=== PATIENT | female | born 1995 | race Hispanic/Latino ===

== ENCOUNTER → 2017-10-03 | Outpatient (CLI) | payer OTHER | LOC: M LRY 09:30 | DX: Z53.9 Procedure and treatment not carried out, unspecified reason (principal) ==

== ENCOUNTER → 2017-10-10 | Outpatient (REF) | payer OTHER ==
[2017-10-10 11:30] LABS: HEMATOCRIT 42.1 % (36.0-47.0); HEMOGLOBIN 14.2 g/dl (12.0-16.0); MEAN CORPUSCULAR HEMOGLOBIN 27.3 pg (27.0-33.0); MEAN CORPUSCULAR HGB CONC 33.7 g/dl (32.0-36.5); PLATELET COUNT, AUTOMATED 266 10^3/uL (150-450); RED CELL DISTRIBUTION WIDTH 12.7 % (11.5-14.5); WHITE BLOOD COUNT 7.7 10^3/uL (4.0-10.0)
[2017-10-10 12:12] LABS: ALBUMIN 4.1 GM/DL (3.2-5.2); ALKALINE PHOSPHATASE 95 U/L (45-117); ALT/SGPT 31 U/L (12-78); ANION GAP 7 MEQ/L (8-16); AST/SGOT 23 U/L (7-37); BILIRUBIN,TOTAL 0.3 MG/DL (0.2-1.0); BLOOD UREA NITROGEN 14 MG/DL (7-18); CALCIUM LEVEL 9.5 MG/DL (8.5-10.1); CARBON DIOXIDE LEVEL 29 MEQ/L (21-32); CHLORIDE LEVEL 107 MEQ/L (98-107); CREATININE FOR GFR 0.81 MG/DL (0.55-1.30); GLOMERULAR FILTRATION RATE > 60.0 (>60); GLUCOSE, FASTING 98 MG/DL (70-100); POTASSIUM SERUM 3.9 MEQ/L (3.5-5.1); SODIUM LEVEL 143 MEQ/L (136-145); TOTAL PROTEIN 8.2 GM/DL (6.4-8.2)
[2017-10-10 12:51] LABS: ESTIMATED AVERAGE GLUCOSE 120 MG/DL (60-110); HEMOGLOBIN A1c 5.8 %
== END ==
LOC: M SFHCCLAY 11:11
DX: R51 Headache (principal); R41.9 Unspecified symptoms and signs involving cognitive functions and awareness

== ENCOUNTER 2018-07-06 18:06 | Emergency (ER) | payer OTHER ==
[~2018-07-06] VITALS: Ht 167.6 cm; Wt 90.9 kg
[~2018-07-06 18:06] MED LIST: HYDRO50TAB PO; TRAZO50TA PO
--- NOTE | 2018-07-06 19:16 | REP ---
Clinical: Pain. Technique: AP and lateral views of the right humerus. Findings: There is a spiral fracture of the mid/distal humeral shaft with mild displacement. Impression: Spiral fracture of the mid/distal humeral diaphysis. Electronically Signed by Eliot Munguia MD 07/06/2018 07:08 P
--- NOTE | 2018-07-06 19:18 | REP ---
Clinical: Trauma. Findings: There is an angulated displaced fracture of the distal humeral shaft with overlying soft tissue swelling. The elbow joint appears grossly intact. Impression: Angulated displaced fracture of the distal humeral shaft. Elbow joint grossly intact. Electronically Signed by Eliot Mnuguia MD 07/06/2018 07:09 P
[2018-07-06] MEDS ORDERED: IBUPROFEN 800 MG TAB PO ONE (21:30)
[2018-07-06] MEDS ORDERED: HYDR-3713 PO (22:39)
[2018-07-06] MEDS ORDERED: IBUP80TA PO (22:41)
[2018-07-06 22:58] VITALS: BP 112/59
--- NOTE | 2018-07-07 08:19 | REP ---
Clinical: Trauma. Technique: AP and lateral views of the right humerus. Findings: There is a mildly displaced and angulated oblique fracture of the mid/distal humeral shaft. No other fracture or dislocation appreciated. Impression: Oblique fracture of the mid/distal humeral shaft. Electronically Signed by Eliot Munguia MD 07/07/2018 08:11 A
== END 2018-07-06 22:59 | disposition home or self-care (01) ==
LOC: M ED 18:06
DX: S42.341A Displaced spiral fracture of shaft of humerus, right arm, initial encounter for closed fracture (principal); X58.XXXA Exposure to other specified factors, initial encounter; Y92.149 Unspecified place in prison as the place of occurrence of the external cause; Y93.89 Activity, other specified; Y99.9 Unspecified external cause status

== ENCOUNTER → 2019-01-10 | Outpatient (CLI) | payer OTHER ==
[~2019-01-10] MED LIST changes: +HYDR-3713 PO; +IBUP80TA PO; +TRAZ1TAB10 PO; -TRAZO50TA PO
--- NOTE | 2019-01-10 11:43 | REP ---
Clinical: Right arm pain. Technique: AP and lateral views of the right humerus. Findings: Healed/healing fracture of the distal humeral diaphysis is appreciated with surrounding periosteal reaction and callus formation. Clinical correlation is recommended to exclude new superimposed acute injury. Remainder of the humerus appears intact and normal. Impression: As above. Electronically Signed by Eliot Munguia MD 01/10/2019 11:34 A
== END ==
LOC: M SMT 11:06
PROVIDERS: ATTEND Physician Assistant Medical
DX: S42.301A Unspecified fracture of shaft of humerus, right arm, initial encounter for closed fracture (principal); Y92.9 Unspecified place or not applicable; Y93.9 Activity, unspecified

== ENCOUNTER → 2019-02-05 | Outpatient (CLI) | payer OTHER ==
[2019-02-05 20:51] LABS: ALBUMIN 4.4 GM/DL (3.2-5.2); ALT/SGPT 38 U/L (12-78); BILIRUBIN,TOTAL 0.2 MG/DL (0.2-1.0); BLOOD UREA NITROGEN 11 MG/DL (7-18); CALCIUM LEVEL 10.2 MG/DL (8.5-10.1); CARBON DIOXIDE LEVEL 27 MEQ/L (21-32); CHLORIDE LEVEL 103 MEQ/L (98-107); CREATININE FOR GFR 0.82 MG/DL (0.55-1.30); GLOMERULAR FILTRATION RATE > 60.0 (>60); GLUCOSE, FASTING 66 MG/DL (70-100); POTASSIUM SERUM 4.3 MEQ/L (3.5-5.1); SODIUM LEVEL 137 MEQ/L (136-145); TOTAL 25(OH) VITAMIN D 22.2 NG/ML (30.0-100.0); TOTAL PROTEIN 8.6 GM/DL (6.4-8.2)
[2019-02-05 20:52] LABS: BASO # 0.1 10^3/uL (0.0-0.2); BASO % 0.4 % (0.0-1.0); EOS # 0.1 10^3/uL (0.0-0.50); EOS % 0.6 % (0.0-3.0); HEMATOCRIT 41.4 % (36.0-47.0); HEMOGLOBIN 13.7 g/dl (12.0-15.5); LYMPH # 2.6 10^3/uL (1.5-6.5); LYMPH % 18.7 % (24.0-44.0); MEAN CORPUSCULAR HGB CONC 33.1 g/dl (32.0-36.5); MEAN CORPUSCULAR VOLUME 84.5 fl (80.0-96.0); MONO # 1.3 10^3/uL (0.0-0.8); MONO % 9.1 % (0.0-5.0); NEUTROPHILS # 9.9 10^3/uL (1.8-7.7); NEUTROPHILS % 70.6 % (36.0-66.0); PLATELET COUNT, AUTOMATED 307 10^3/uL (150-450)
== END ==
LOC: M WUC 16:05
PROVIDERS: ATTEND Physician Assistant Medical
DX: F41.1 Generalized anxiety disorder (principal); E55.9 Vitamin D deficiency, unspecified; M79.601 Pain in right arm

== ENCOUNTER → 2019-07-07 | Outpatient (CLI) | payer OTHER ==
[~2019-07-07] MED LIST changes: +HYDR1TAB33 PO; -HYDRO50TAB PO
[2019-07-07 13:10] LABS: HEMATOCRIT 41.2 % (36.0-47.0); HEMOGLOBIN 13.8 g/dl (12.0-15.5); MEAN CORPUSCULAR HEMOGLOBIN 27.4 pg (27.0-33.0); MEAN CORPUSCULAR HGB CONC 33.5 g/dl (32.0-36.5); MEAN CORPUSCULAR VOLUME 81.9 fl (80.0-96.0); PLATELET COUNT, AUTOMATED 273 10^3/uL (150-450); RED BLOOD COUNT 5.03 10^6/uL (4.00-5.40); WHITE BLOOD COUNT 8.2 10^3/uL (4.0-10.0)
[2019-07-07 13:36] LABS: ALT/SGPT 38 U/L (12-78); BILIRUBIN,TOTAL 0.2 MG/DL (0.2-1.0); BLOOD UREA NITROGEN 17 MG/DL (7-18); CALCIUM LEVEL 9.1 MG/DL (8.5-10.1); CARBON DIOXIDE LEVEL 27 MEQ/L (21-32); CHLORIDE LEVEL 109 MEQ/L (98-107); CREATININE FOR GFR 0.92 MG/DL (0.55-1.30); GLOMERULAR FILTRATION RATE > 60.0 (>60); GLUCOSE, FASTING 103 MG/DL (70-100); POTASSIUM SERUM 4.1 MEQ/L (3.5-5.1); SODIUM LEVEL 142 MEQ/L (136-145); TOTAL PROTEIN 7.9 GM/DL (6.4-8.2)
[2019-07-07 13:44] LABS: FREE T4 0.85 NG/DL (0.76-1.46); THYROID STIMULATING HORMONE 2.18 uIU/ML (0.358-3.740); TOTAL 25(OH) VITAMIN D 20.6 NG/ML (30.0-100.0)
== END ==
LOC: M PLALAB 10:59
PROVIDERS: ATTEND Physician Assistant
DX: R73.09 Other abnormal glucose (principal); F41.9 Anxiety disorder, unspecified; R53.83 Other fatigue

== ENCOUNTER → 2020-09-24 | Outpatient (CLI) | payer MEDICAID ==
[~2020-09-24] MED LIST changes: +OSEL75CA PO; +PRENTAB9 PO
== END ==
LOC: M OUTALCOH 08:22
PROVIDERS: ATTEND Psychiatry & Neurology Psychiatry
DX: Z13.9 Encounter for screening, unspecified (principal)

== ENCOUNTER → 2022-01-17 | Outpatient (CLI) | payer OTHER ==
[~2022-01-17] MED LIST changes: +FLAG500T PO
== END ==
LOC: M PLALAB 10:48
PROVIDERS: ATTEND Obstetrics & Gynecology
DX: Z36.9 Encounter for antenatal screening, unspecified (principal); Z3A.12 12 weeks gestation of pregnancy

== ENCOUNTER 2022-02-24 22:32 | Emergency (ER) | payer MEDICAID, OTHER ==
[~2022-02-24] VITALS: Ht 175.3 cm; Wt 109.2 kg
[2022-02-24 22:33] VITALS: BP 125/82
== END 2022-02-25 00:04 | disposition left against medical advice (07) ==
LOC: M ED 22:32
DX: Z53.21 Procedure and treatment not carried out due to patient leaving prior to being seen by health care provider (principal)

== ENCOUNTER 2022-03-07 03:16 | Emergency (ER) | payer MEDICAID, OTHER ==
[~2022-03-07] VITALS: Ht 175.3 cm; Wt 118.2 kg
[2022-03-07 04:39] LABS: RSV AMPLIFICATION NEGATIVE (NEGATIVE)
[2022-03-07] MEDS ORDERED: ACETAMINOPHEN 500 MG TAB PO ONE (05:40)
[2022-03-07] MEDS ORDERED: ALBUTEROL 90 MCG/ACT 8GM HFA INHALER INH ONE (05:40)
[2022-03-07] MEDS ORDERED: BENZONATATE 100MG CAPSULE PO ONE (05:40)
[2022-03-07] MEDS ORDERED: BENZ200C70 PO (05:42)
[2022-03-07 06:00] VITALS: BP 176/107
== END 2022-03-07 06:25 | disposition home or self-care (01) ==
LOC: M ED 03:16
DX: S29.011A Strain of muscle and tendon of front wall of thorax, initial encounter (principal); R05.9 Cough, unspecified; J45.909 Unspecified asthma, uncomplicated; F17.200 Nicotine dependence, unspecified, uncomplicated; Y93.9 Activity, unspecified; Y92.9 Unspecified place or not applicable

== ENCOUNTER → 2022-03-08 | Outpatient (CLI) | payer OTHER ==
[~2022-03-08] MED LIST changes: +BENZ200C70 PO
== END ==
LOC: M WHC 14:01
PROVIDERS: ATTEND Specialist
DX: Z34.02 Encounter for supervision of normal first pregnancy, second trimester (principal); Z3A.21 21 weeks gestation of pregnancy

== ENCOUNTER → 2022-04-12 | Outpatient (CLI) | payer OTHER | LOC: M WHC 08:37 | PROVIDERS: ATTEND Advanced Practice Midwife | DX: O99.342 Other mental disorders complicating pregnancy, second trimester (principal); Z3A.26 26 weeks gestation of pregnancy ==

== ENCOUNTER 2022-04-22 22:11 | Inpatient (IN) | payer MEDICAID, OTHER ==
[2022-04-22 22:49] LABS: HEMATOCRIT 34.5 % (36.0-47.0); HEMOGLOBIN 11.4 g/dl (12.0-15.5); MEAN CORPUSCULAR HEMOGLOBIN 27.7 pg (27.0-33.0); MEAN CORPUSCULAR VOLUME 83.9 fl (80.0-96.0); PLATELET COUNT, AUTOMATED 234 10^3/uL (150-450); RED BLOOD COUNT 4.11 10^6/uL (4.00-5.40)
[2022-04-22 23:32] LABS: RSV AMPLIFICATION NEGATIVE (NEGATIVE)
[2022-04-22 23:52] LABS: HCG, SERUM QUALITATIVE POSITIVE (NEGATIVE)
[2022-04-22 23:53] LABS: ACETAMINOPHEN LEVEL < 2.0 UG/ML (10.0-30.0); ALBUMIN 3.1 GM/DL (3.2-5.2); ALT/SGPT 37 U/L (12-78); BILIRUBIN,DIRECT < 0.1 MG/DL (0.0-0.2); BLOOD UREA NITROGEN 7 MG/DL (7-18); CALCIUM LEVEL 9.3 MG/DL (8.5-10.1); CARBON DIOXIDE LEVEL 27 MEQ/L (21-32); CHLORIDE LEVEL 107 MEQ/L (98-107); ETHYL ALCOHOL (ETHANOL) 0.003 % (0.000-0.010); GLOMERULAR FILTRATION RATE > 60.0 (>60); GLUCOSE, FASTING 86 MG/DL (70-100); POTASSIUM SERUM 3.9 MEQ/L (3.5-5.1); SALICYLATE LEVEL < 1.7 MG/DL (5.0-30.0); SODIUM LEVEL 139 MEQ/L (136-145); TOTAL PROTEIN 6.7 GM/DL (6.4-8.2)
[2022-04-23 00:37] LABS: AMPHETAMINES LEVEL URINE NEGATIVE (NEGATIVE); BARBITURATES URINE NEGATIVE (NEGATIVE); BENZODIAZEPINES URINE NEGATIVE (NEGATIVE); CANNABINOIDS URINE NEGATIVE (NEGATIVE); COCAINE METABOLITE URINE NEGATIVE (NEGATIVE); METHADONE URINE NEGATIVE (NEGATIVE); OPIATES URINE NEGATIVE (NEGATIVE); PHENCYCLIDINE URINE NEGATIVE (NEGATIVE)
[2022-04-23 01:44] LABS: BILIRUBIN,TOTAL < 0.1 MG/DL (0.2-1.0)
[2022-04-23] MEDS ORDERED: med rec comment (06:18)
[2022-04-23] MEDS ORDERED: HOME MED LIST COMPLETE! XX SCH (06:20)
[2022-04-24] MEDS ORDERED: MOM 30ML SUSPENSION UDC PO PRN (13:55)
[2022-04-24] MEDS ORDERED: MAALOX 30 ML SUSP *UDC PO PRN (13:55)
[2022-04-24] MEDS ORDERED: MIRALAX *UNIT DOSE* 17GM PACKET PO ONE (14:00)
[2022-04-24 23:21] VITALS: BP 139/65
[2022-04-25] MEDS: PRENATAL VITAMINS CHEWABLE TABLET PO SCH (10:21)
[2022-04-25 16:01] VITALS: BP 138/64
[2022-04-26 06:24] VITALS: BP 142/64
[2022-04-26] MEDS: PRENATAL VITAMINS CHEWABLE TABLET PO SCH (07:30)
[2022-04-26 16:21] VITALS: BP 136/66
[2022-04-26] MEDS ORDERED: PRENCHW PO (16:49)
[2022-04-26] MEDS ORDERED: diphenhydrAMINE 50MG CAP PO PRN (22:40)
[2022-04-27 06:30] VITALS: BP 137/90
[2022-04-27] MEDS: PRENATAL VITAMINS CHEWABLE TABLET PO SCH (08:43)
== END 2022-04-27 10:22 | disposition home or self-care (01) | DRG 755 ==
LOC: M ED 22:11 → M ED INP 04-24 13:54 → M PSY 04-24 22:13
PROVIDERS: ADMIT Student in an Organized Health Care Education/Training Program; ATTEND Psychiatry & Neurology Psychiatry
DX: F43.23 Adjustment disorder with mixed anxiety and depressed mood (principal); R45.851 Suicidal ideations; O09.32 Supervision of pregnancy with insufficient antenatal care, second trimester; O09.33 Supervision of pregnancy with insufficient antenatal care, third trimester; F43.10 Post-traumatic stress disorder, unspecified; F17.210 Nicotine dependence, cigarettes, uncomplicated; Z3A.28 28 weeks gestation of pregnancy

== ENCOUNTER → 2022-05-23 | Outpatient (CLI) | payer OTHER ==
[~2022-05-23] MED LIST changes: -FLAG500T PO; +PRENCHW PO; +med rec comment
[2022-05-23 13:36] LABS: HEMATOCRIT 37.6 % (36.0-47.0); MEAN CORPUSCULAR HEMOGLOBIN 27.5 pg (27.0-33.0); MEAN CORPUSCULAR HGB CONC 31.9 g/dl (32.0-36.5); MEAN CORPUSCULAR VOLUME 86.2 fl (80.0-96.0); PLATELET COUNT, AUTOMATED 215 10^3/uL (150-450); RED BLOOD COUNT 4.36 10^6/uL (4.00-5.40); WHITE BLOOD COUNT 12.1 10^3/uL (4.0-10.0)
[2022-05-23 14:23] LABS: GLUCOSE CHALLENGE TEST 1 HOUR 142 MG/DL (LESS THAN 140)
[2022-05-23 15:11] LABS: GC DNA AMPLIFICATION NEGATIVE (NEGATIVE)
[2022-05-23 15:46] LABS: HEPATITIS C VIRUS ABY INDEX 0.2 INDEX (<0.8)
[2022-05-23 15:47] LABS: HIV 1&2 SCREEN CENTAUR NEGATIVE (NEGATIVE)
== END ==
LOC: M PLALAB 10:26
PROVIDERS: ATTEND Advanced Practice Midwife
DX: O99.342 Other mental disorders complicating pregnancy, second trimester (principal); Z3A.00 Weeks of gestation of pregnancy not specified

== ENCOUNTER → 2022-05-31 | Outpatient (CLI) | payer OTHER | LOC: M WHC 12:56 | PROVIDERS: ATTEND Advanced Practice Midwife | DX: Z34.83 Encounter for supervision of other normal pregnancy, third trimester (principal); Z3A.31 31 weeks gestation of pregnancy ==

== ENCOUNTER → 2022-07-04 | Outpatient (REF) | payer OTHER | LOC: M SFHCWAGY 10:15 | PROVIDERS: ATTEND Specialist | DX: Z34.83 Encounter for supervision of other normal pregnancy, third trimester (principal) ==

== ENCOUNTER 2022-07-29 07:47 | Inpatient (IN) | payer OTHER ==
[2022-07-29] VITALS (17 sets, daily range): BP systolic 133–176; BP diastolic 73–101
[~2022-07-29] VITALS: Ht 175.3 cm; Wt 115.7 kg
[2022-07-29] MEDS ORDERED: OXYTOCIN INJ 10UNITS/ML 1ML VIAL IM PRN (07:55)
[2022-07-29] MEDS ORDERED: LIDOCAINE 1% MDV 20ML VIAL INFIL PRN (07:55)
[2022-07-29] MEDS ORDERED: OXYTOCIN DRIP 30 UNITS in IV 1 EA IV PRN ×6 (07:55)
[2022-07-29] MEDS ORDERED: OXYTOCIN INJ 10UNITS/ML 1ML VIAL IV PRN (07:55)
[2022-07-29] MEDS ORDERED: CARBOPROST TROMETHAMINE 250 MCG/ML AMP IM PRN (07:55)
[2022-07-29] MEDS ORDERED: TRANEXAMIC ACID INJection 1,000 MG in NS 100 ML IV PRN (07:55)
[2022-07-29] MEDS ORDERED: METHYLERGONOVINE MALEATE 0.2 MG/ML VIAL (J2210) IM PRN (07:55)
[2022-07-29] MEDS ORDERED: ACET325C5 PO (08:18)
[2022-07-29] MEDS ORDERED: PRENTAB9 PO (08:18)
[2022-07-29] MEDS ORDERED: HOME MED LIST COMPLETE! XX SCH (08:20)
[2022-07-29 09:27] LABS: HEMATOCRIT 38.9 % (36.0-47.0); HEMOGLOBIN 13.1 g/dl (12.0-15.5); MEAN CORPUSCULAR HEMOGLOBIN 28.4 pg (27.0-33.0); MEAN CORPUSCULAR HGB CONC 33.7 g/dl (32.0-36.5); MEAN CORPUSCULAR VOLUME 84.2 fl (80.0-96.0); PLATELET COUNT, AUTOMATED 201 10^3/uL (150-450); RED BLOOD COUNT 4.62 10^6/uL (4.00-5.40); WHITE BLOOD COUNT 10.9 10^3/uL (4.0-10.0)
[2022-07-29] MEDS ORDERED: LACTATED RINGER'S 1000 ML IV STA (09:52)
[2022-07-29 10:15] LABS: LDH LACTATE DEHYDROGENASE 382 U/L (120-246)
[2022-07-29] MEDS ORDERED: miSOPROStol 50MCG 1/2 TABLET PO ONE (10:50)
[2022-07-29 11:03] LABS: ALT/SGPT 21 U/L (7.0-40); AST/SGOT 47 U/L (<34); BILIRUBIN,TOTAL 0.2 MG/DL (0.3-1.2); CREATININE FOR GFR 0.56 MG/DL (0.55-1.30); GLOMERULAR FILTRATION RATE > 60.0 (>60)
[2022-07-29] MEDS: LR 1,000 ML IV SCH ×2 (11:24→18:59)
[2022-07-29 12:30] LABS: AMPHETAMINES URINE REFLEX NEGATIVE (NEGATIVE); BARBITURATES URINE REFLEX NEGATIVE (NEGATIVE); BENZODIAZEPINES URINE REFLEX NEGATIVE (NEGATIVE); CANNABINOIDS URINE REFLEX NEGATIVE (NEGATIVE); COCAINE METABOLITE URINE REFLE NEGATIVE (NEGATIVE); METHADONE URINE REFLEX NEGATIVE (NEGATIVE); OPIATES URINE REFLEX NEGATIVE (NEGATIVE); PHENCYCLIDINE URINE REFLEX NEGATIVE (NEGATIVE)
[2022-07-29] MEDS ORDERED: OXYTOCIN DRIP 30 UNITS in IV 1 EA IV SCH ×2 (13:20→22:30)
[2022-07-29] MEDS ORDERED: BICITRA 30ML SOLN UDC PO ONE (18:40)
[2022-07-29] MEDS ORDERED: ceFAZolin SOD 2 GM in IV 1 EA IV ONE (18:40)
[2022-07-29] MEDS ORDERED: MORPHINE PRES-FREE INJ 10 MG/10 ML VIAL As Ordered ONE (20:09)
[2022-07-29] MEDS ORDERED: OXYTOCIN 30UNITS IN 0.9% NaCl 500ML IV BAG As Ordered ONE (20:35)
[2022-07-29] MEDS ORDERED: ONDANSETRON 4MG 2ML VIAL As Ordered ONE (20:54)
[2022-07-29 20:59] LABS: CORD GAS ABE V -0.2; CORD GAS HCO3 V 27.2 MEQ/L; CORD GAS O2 SAT V 50.4 %; CORD GAS PCO2 V 54.2 mmHg; CORD GAS PH V 7.318 UNITS; CORD GAS TCO2 V 28.8 MEQ/L
[2022-07-29 21:02] LABS: CORD GAS ABE A -1.3; CORD GAS HCO3 A 28.1 MEQ/L; CORD GAS O2 SAT A 15.1 %; CORD GAS PH A 7.24 UNITS; CORD GAS PO2 A 11.2 mmHg; CORD GAS SBC A 21.2 MEQ/L; CORD GAS TCO2 A 30.1 MEQ/L
[2022-07-29] MEDS ORDERED: ePHEDrine SULFATE 25 MG/5 ML(5MG/ML) SYRINGE As Ordered ONE (21:06)
[2022-07-29] MEDS ORDERED: PHENYLephrine 500MCG 5ML (100MCG/ML) SYRINGE As Ordered ONE (21:06)
[2022-07-29] MEDS ORDERED: KETOROLAC 60MG 2ML VIAL As Ordered ONE (21:15)
[2022-07-29] MEDS ORDERED: RHOGAM 300MCG (1500IU) INJ IM SCH (22:30)
[2022-07-29] MEDS ORDERED: SIMETHICONE 80MG CHEW TAB PO PRN (22:30)
[2022-07-29] MEDS ORDERED: METOCLOPRAMIDE INJ 10MG/2ML VIAL IV PRN (22:30)
[2022-07-29] MEDS ORDERED: DOCUSATE SODIUM 100MG CAPSULE PO PRN (22:30)
[2022-07-29] MEDS ORDERED: oxyCODONE 5MG TAB PO PRN (22:30)
[2022-07-29] MEDS ORDERED: ONDANSETRON 4MG 2ML VIAL IV PRN (22:30)
[2022-07-29] MEDS: ACETAMINOPHEN 500 MG TAB PO SCH (23:56)
[2022-07-30] VITALS (9 sets, daily range): BP systolic 131–153; BP diastolic 65–91
[2022-07-30] MEDS: KETOROLAC 30 MG/ML 1ML VIAL IV SCH ×3 (03:00→15:08)
[2022-07-30] MEDS: ACETAMINOPHEN 500 MG TAB PO SCH ×4 (06:19→23:39)
[2022-07-30] MEDS: PRENATAL VITAMINS CHEWABLE TABLET PO SCH (08:00)
[2022-07-30 08:07] LABS: HEMOGLOBIN 11.6 g/dl (12.0-15.5); MEAN CORPUSCULAR HEMOGLOBIN 28.6 pg (27.0-33.0); MEAN CORPUSCULAR HGB CONC 33.1 g/dl (32.0-36.5); MEAN CORPUSCULAR VOLUME 86.4 fl (80.0-96.0); PLATELET COUNT, AUTOMATED 167 10^3/uL (150-450); RED BLOOD COUNT 4.05 10^6/uL (4.00-5.40); WHITE BLOOD COUNT 14.3 10^3/uL (4.0-10.0)
[2022-07-30] MEDS ORDERED: FLUCONAZOLE 100 MG TAB PO ONE (13:00)
[2022-07-30] MEDS ORDERED: traZODone 100 MG TAB PO PRN (20:15)
[2022-07-30] MEDS: ARIPiprazole 10 MG TAB PO SCH (21:00)
[2022-07-30] MEDS: IBUPROFEN 600MG TAB PO SCH (23:39)
[2022-07-31 02:34] VITALS: BP 142/83
[2022-07-31] MEDS: ACETAMINOPHEN 500 MG TAB PO SCH ×3 (05:23→18:00)
[2022-07-31] MEDS: IBUPROFEN 600MG TAB PO SCH ×4 (05:24→20:22)
[2022-07-31 06:02] VITALS: BP 138/70
[2022-07-31] MEDS: PRENATAL VITAMINS CHEWABLE TABLET PO SCH (08:06)
[2022-07-31] MEDS ORDERED: MEASLES,MUMPS,RUBELLA VACCINE INJ (MMR-II) SC.IMMUN ONE (09:00)
[2022-07-31 10:05] VITALS: BP 149/80
[2022-07-31 14:15] VITALS: BP 169/80
[2022-07-31] MEDS: oxyCODONE 5MG TAB PO PRN (14:28)
[2022-07-31 14:30] VITALS: BP 146/83
[2022-07-31 18:00] VITALS: BP 145/71
[2022-07-31] MEDS: ARIPiprazole 10 MG TAB PO SCH (20:22)
[2022-08-01] MEDS: oxyCODONE 5MG TAB PO PRN (05:10)
[2022-08-01] MEDS: IBUPROFEN 600MG TAB PO SCH ×2 (05:11→11:36)
[2022-08-01 05:56] VITALS: BP_SYST 113; BP_SYST 146; BP_DIAS 59; BP_DIAS 86
[2022-08-01] MEDS: ACETAMINOPHEN 500 MG TAB PO SCH ×3 (06:00→12:00)
[2022-08-01 07:13] LABS: HEMOGLOBIN 10.4 g/dl (12.0-15.5); MEAN CORPUSCULAR HEMOGLOBIN 28.3 pg (27.0-33.0); MEAN CORPUSCULAR HGB CONC 32.5 g/dl (32.0-36.5); MEAN CORPUSCULAR VOLUME 87.2 fl (80.0-96.0); PLATELET COUNT, AUTOMATED 183 10^3/uL (150-450); RED BLOOD COUNT 3.67 10^6/uL (4.00-5.40); WHITE BLOOD COUNT 9.4 10^3/uL (4.0-10.0)
[2022-08-01 07:54] LABS: LDH LACTATE DEHYDROGENASE 250 U/L (120-246)
[2022-08-01 07:55] LABS: ALT/SGPT 25 U/L (7.0-40); AST/SGOT 33 U/L (<34); BILIRUBIN,TOTAL 0.2 MG/DL (0.3-1.2); CREATININE FOR GFR 0.63 MG/DL (0.55-1.30); GLOMERULAR FILTRATION RATE > 60.0 (>60)
[2022-08-01] MEDS: PRENATAL VITAMINS CHEWABLE TABLET PO SCH (08:12)
[2022-08-01] MEDS ORDERED: COLA100C5 PO (13:33)
[2022-08-01] MEDS ORDERED: IBUP-1022 PO (13:33)
[2022-08-01] MEDS ORDERED: OXYC-517 PO (13:33)
[2022-08-01] MEDS ORDERED: ABIL10TA9 PO (19:52)
== END 2022-08-01 16:55 | disposition home or self-care (01) | DRG 540 ==
LOC: MERGE 07:47 → M LDI 07:47 → M OBS 23:40
PROVIDERS: ADMIT Obstetrics & Gynecology; ATTEND Obstetrics & Gynecology
PROC: 3E033VJ Introduction of Other Hormone into Peripheral Vein, Percutaneous Approach (ICD-10-PCS; 2022-07-29)
PROC: 10D00Z1 Extraction of Products of Conception, Low, Open Approach (ICD-10-PCS; principal; 2022-07-29 20:07)
DX: O13.4 Gestational [pregnancy-induced] hypertension without significant proteinuria, complicating childbirth (principal); F20.9 Schizophrenia, unspecified; O98.52 Other viral diseases complicating childbirth; Z37.0 Single live birth; Z3A.40 40 weeks gestation of pregnancy; O48.0 Post-term pregnancy; O99.344 Other mental disorders complicating childbirth; O99.284 Endocrine, nutritional and metabolic diseases complicating childbirth; B00.9 Herpesviral infection, unspecified; O76 Abnormality in fetal heart rate and rhythm complicating labor and delivery

== ENCOUNTER 2022-08-26 02:09 | Inpatient (IN) | payer MEDICAID, OTHER ==
[~2022-08-26] VITALS: Ht 175.3 cm; Wt 102.1 kg
[~2022-08-26 02:09] MED LIST changes: +ABIL10TA9 PO; +ACET325C5 PO; +COLA100C5 PO; +IBUP-1022 PO; +OXYC-517 PO
[2022-08-26] MEDS ORDERED: TRAZ-257 PO (03:02)
[2022-08-26] MEDS ORDERED: ARIP10TA32 PO (03:02)
[2022-08-26] MEDS ORDERED: HOME MED LIST COMPLETE! XX SCH (03:05)
[2022-08-26 03:45] LABS: HEMATOCRIT 37.3 % (36.0-47.0); MEAN CORPUSCULAR HEMOGLOBIN 27.8 pg (27.0-33.0); MEAN CORPUSCULAR HGB CONC 32.2 g/dl (32.0-36.5); MEAN CORPUSCULAR VOLUME 86.5 fl (80.0-96.0); PLATELET COUNT, AUTOMATED 261 10^3/uL (150-450); RED BLOOD COUNT 4.31 10^6/uL (4.00-5.40); WHITE BLOOD COUNT 9.4 10^3/uL (4.0-10.0)
[2022-08-26 03:51] LABS: AMPHETAMINES LEVEL URINE NEGATIVE (NEGATIVE); BARBITURATES URINE NEGATIVE (NEGATIVE); BENZODIAZEPINES URINE NEGATIVE (NEGATIVE); CANNABINOIDS URINE NEGATIVE (NEGATIVE); COCAINE METABOLITE URINE NEGATIVE (NEGATIVE); METHADONE URINE NEGATIVE (NEGATIVE); OPIATES URINE NEGATIVE (NEGATIVE); PHENCYCLIDINE URINE NEGATIVE (NEGATIVE)
[2022-08-26 04:06] LABS: ETHYL ALCOHOL (ETHANOL) < 0.003 % (0.000-0.010)
[2022-08-26 04:07] LABS: ACETAMINOPHEN LEVEL < 2.0 UG/ML (10.0-20.0)
[2022-08-26 04:08] LABS: ALKALINE PHOSPHATASE 189 U/L (46-116); ALT/SGPT 36 U/L (7.0-40); AST/SGOT 23 U/L (<34); BILIRUBIN,DIRECT < 0.1 MG/DL (<0.4); BILIRUBIN,TOTAL 0.3 MG/DL (0.3-1.2); BLOOD UREA NITROGEN 14 MG/DL (9-23); CALCIUM LEVEL 9.4 MG/DL (8.5-10.1); CARBON DIOXIDE LEVEL 28 MMOL/L (20-31); CHLORIDE LEVEL 108 MMOL/L (98-107); CREATININE FOR GFR 0.87 MG/DL (0.55-1.30); GLOMERULAR FILTRATION RATE > 60.0 (>60); GLUCOSE, FASTING 95 MG/DL (60-100); POTASSIUM SERUM 4.3 MMOL/L (3.5-5.1); SALICYLATE LEVEL < 3.0 MG/DL (<30); SODIUM LEVEL 139 MMOL/L (136-145); TOTAL PROTEIN 7.2 G/DL (5.7-8.2)
[2022-08-26 04:10] LABS: THYROID STIMULATING HORMONE 2.778 uIU/ML (0.55-4.78)
[2022-08-26 04:47] LABS: HCG, SERUM QUALITATIVE NEGATIVE (NEGATIVE)
[2022-08-26] MEDS ORDERED: ARIPiprazole 10 MG TAB PO SCH (09:00)
[2022-08-26] MEDS ORDERED: traZODone 100 MG TAB PO PRN (13:45)
[2022-08-26] MEDS ORDERED: MAALOX 30 ML SUSP *UDC PO PRN (18:05)
[2022-08-26] MEDS ORDERED: MOM 30ML SUSPENSION UDC PO PRN (18:05)
[2022-08-26] MEDS: LORazepam 1 MG TAB PO PRN (21:14)
[2022-08-26 22:00] VITALS: BP 148/84
[2022-08-27 06:11] VITALS: BP 127/61
[2022-08-27] MEDS: OLANZapine ORAL DISINTEGRATING TAB 5MG PO PRN ×2 (06:29→13:29)
[2022-08-27] MEDS: ARIPiprazole 10 MG TAB PO SCH (08:19)
[2022-08-27] MEDS: LORazepam 1 MG TAB PO PRN ×2 (08:20→13:31)
[2022-08-27] MEDS: NICOTINE 14 MG/24 HR TRANSDERMAL TD SCH (09:00)
[2022-08-27] MEDS: risperiDONE 2 MG TAB PO SCH ×2 (11:51→20:01)
[2022-08-27] MEDS: ACETAMINOPHEN TAB 650MG DOSE (2X325MG) PO PRN (13:30)
[2022-08-27] MEDS: VANICREAM MOISTURIZING SKIN CREAM 113GM TUBE TOP SCH ×2 (14:42→20:01)
[2022-08-27 16:18] VITALS: BP 141/82
[2022-08-27] MEDS: IBUPROFEN 800 MG TAB PO PRN (17:51)
[2022-08-27] MEDS: traZODone 100 MG TAB PO PRN (20:01)
[2022-08-28 06:26] VITALS: BP 122/65
[2022-08-28] MEDS: VANICREAM MOISTURIZING SKIN CREAM 113GM TUBE TOP SCH ×2 (08:18→20:01)
[2022-08-28] MEDS: ARIPiprazole 10 MG TAB PO SCH (08:18)
[2022-08-28] MEDS: risperiDONE 2 MG TAB PO SCH ×2 (08:18→20:01)
[2022-08-28] MEDS: NICOTINE 14 MG/24 HR TRANSDERMAL TD SCH ×2 (08:20→09:02)
[2022-08-28] MEDS: OLANZapine ORAL DISINTEGRATING TAB 5MG PO PRN (09:53)
[2022-08-28] MEDS: LORazepam 1 MG TAB PO PRN ×2 (13:42→20:01)
[2022-08-28] MEDS: IBUPROFEN 800 MG TAB PO PRN (15:10)
[2022-08-28] MEDS: traZODone 100 MG TAB PO PRN (20:01)
[2022-08-29 06:45] VITALS: BP 149/77
[2022-08-29] MEDS: NICOTINE 14 MG/24 HR TRANSDERMAL TD SCH (08:55)
[2022-08-29] MEDS: VANICREAM MOISTURIZING SKIN CREAM 113GM TUBE TOP SCH ×2 (08:56→20:04)
[2022-08-29] MEDS: risperiDONE 2 MG TAB PO SCH ×2 (08:56→20:04)
[2022-08-29] MEDS: ARIPiprazole 10 MG TAB PO SCH (08:56)
[2022-08-29] MEDS ORDERED: risperiDONE LONG-ACTING 25MG 2ML INJ IM SCH (09:00)
[2022-08-29] MEDS: LORazepam 1 MG TAB PO PRN (17:10)
[2022-08-29 17:17] VITALS: BP 138/70
[2022-08-29] MEDS: traZODone 100 MG TAB PO PRN (20:04)
[2022-08-30 06:53] VITALS: BP 135/77
[2022-08-30] MEDS: NICOTINE 14 MG/24 HR TRANSDERMAL TD SCH (08:07)
[2022-08-30] MEDS: risperiDONE 2 MG TAB PO SCH ×2 (08:07→20:59)
[2022-08-30] MEDS: ARIPiprazole 10 MG TAB PO SCH (08:07)
[2022-08-30] MEDS: VANICREAM MOISTURIZING SKIN CREAM 113GM TUBE TOP SCH ×2 (08:08→20:59)
[2022-08-30] MEDS: ACETAMINOPHEN TAB 650MG DOSE (2X325MG) PO PRN (09:00)
[2022-08-30] MEDS: IBUPROFEN 800 MG TAB PO PRN (10:51)
[2022-08-30] MEDS: LORazepam 1 MG TAB PO PRN (16:12)
[2022-08-30 16:13] VITALS: BP 140/80
[2022-08-30] MEDS: OLANZapine ORAL DISINTEGRATING TAB 5MG PO PRN (19:22)
[2022-08-31 07:06] VITALS: BP 134/86
[2022-08-31] MEDS: risperiDONE 2 MG TAB PO SCH ×2 (08:49→21:00)
[2022-08-31] MEDS: ARIPiprazole 10 MG TAB PO SCH (08:49)
[2022-08-31] MEDS: VANICREAM MOISTURIZING SKIN CREAM 113GM TUBE TOP SCH ×2 (08:50→21:01)
[2022-08-31] MEDS: NICOTINE 14 MG/24 HR TRANSDERMAL TD SCH (09:00)
[2022-08-31] MEDS ORDERED: LORazepam 1 MG TAB PO PRN (09:50)
[2022-08-31] MEDS: IBUPROFEN 800 MG TAB PO PRN (11:41)
[2022-08-31] MEDS: SERTRALINE HCL 25 MG TABLET PO SCH (12:59)
[2022-08-31] MEDS: OLANZapine ORAL DISINTEGRATING TAB 5MG PO PRN (15:07)
[2022-08-31] MEDS: ACETAMINOPHEN TAB 650MG DOSE (2X325MG) PO PRN (15:08)
[2022-08-31 18:46] VITALS: BP 141/69
[2022-08-31] MEDS: traZODone 100 MG TAB PO PRN (21:05)
[2022-09-01] MEDS: SERTRALINE HCL 25 MG TABLET PO SCH (08:40)
[2022-09-01] MEDS: ARIPiprazole 10 MG TAB PO SCH (08:40)
[2022-09-01] MEDS: risperiDONE 2 MG TAB PO SCH (08:40)
[2022-09-01] MEDS: NICOTINE 14 MG/24 HR TRANSDERMAL TD SCH (08:41)
[2022-09-01] MEDS: VANICREAM MOISTURIZING SKIN CREAM 113GM TUBE TOP SCH (08:42)
[2022-09-01] MEDS ORDERED: RISP-9 PO (11:35)
[2022-09-01] MEDS ORDERED: SERT25TA21 PO (11:35)
[2022-09-01] MEDS ORDERED: NICO14PA TD (11:35)
[2022-09-01] MEDS ORDERED: RISP25INJ IM (11:35)
[2022-09-01] MEDS ORDERED: OLAN5ZYD PO (11:35)
[2022-09-01] MEDS ORDERED: ARIP10TA32 PO (11:35)
[2022-09-01] MEDS ORDERED: TRAZ-257 PO (11:35)
== END 2022-09-01 13:09 | disposition home or self-care (01) | DRG 750 ==
LOC: M ED 02:09 → M ED INP 18:05 → M PSY 21:58
PROVIDERS: ADMIT Student in an Organized Health Care Education/Training Program; ATTEND Student in an Organized Health Care Education/Training Program
DX: F25.0 Schizoaffective disorder, bipolar type (principal); F17.200 Nicotine dependence, unspecified, uncomplicated

== ENCOUNTER → 2022-11-09 | Outpatient (CLI) | payer OTHER ==
[~2022-11-09] MED LIST changes: +ARIP10TA32 PO; +NICO14PA TD; +OLAN5ZYD PO; +RISP-9 PO; +RISP25INJ IM; +SERT25TA21 PO; +TRAZ-257 PO
[2022-11-09 15:56] LABS: FREE T4 1.07 NG/DL (0.89-1.76)
[2022-11-09 15:57] LABS: THYROID STIMULATING HORMONE 2.672 uIU/ML (0.55-4.78)
[2022-11-09 16:04] LABS: HEMOGLOBIN A1c 5.8 % (4.0-6.0)
== END ==
LOC: M PLALAB 12:59
PROVIDERS: ATTEND Physician Assistant Medical
DX: R73.01 Impaired fasting glucose (principal); E03.9 Hypothyroidism, unspecified

== ENCOUNTER → 2022-11-09 | Outpatient (REF) | payer OTHER | LOC: M SFHCPLAZ 12:30 | PROVIDERS: ATTEND Physician Assistant Medical | DX: Z53.9 Procedure and treatment not carried out, unspecified reason (principal) ==

== ENCOUNTER → 2022-11-24 | Outpatient (REF) | payer OTHER | LOC: M SFHCWAGY 17:35 | PROVIDERS: ATTEND Nurse Practitioner Family | DX: Z12.4 Encounter for screening for malignant neoplasm of cervix (principal) ==

== ENCOUNTER 2023-01-25 20:27 | Emergency (ER) | payer OTHER, MEDICAID ==
[~2023-01-25] VITALS: Ht 167.6 cm; Wt 109.1 kg
[2023-01-25] MEDS ORDERED: BOOSTRIX VACCINE (TETANUS/DIPHTH/ACEL. PERTUSSIS) 0.5ML SYR IM.IMMUN ONE (21:20)
[2023-01-25 21:22] VITALS: TEMP 96.5
[2023-01-25] MEDS ORDERED: AUGMENTIN 875 MG TAB PO ONE (21:55)
[2023-01-25] MEDS ORDERED: AMOX875T2 PO (21:56)
[2023-01-25 22:09] VITALS: BP 162/73; O2SAT 99
== END 2023-01-25 22:17 | disposition home or self-care (01) ==
LOC: M ED 20:27
DX: S00.83XA Contusion of other part of head, initial encounter (principal); S00.03XA Contusion of scalp, initial encounter; S61.259A Open bite of unspecified finger without damage to nail, initial encounter; Y92.009 Unspecified place in unspecified non-institutional (private) residence as the place of occurrence of the external cause; Y04.1XXA Assault by human bite, initial encounter; Y04.0XXA Assault by unarmed brawl or fight, initial encounter; Z79.2 Long term (current) use of antibiotics; Z79.899 Other long term (current) drug therapy

== ENCOUNTER → 2023-04-03 | Outpatient (CLI) | payer OTHER ==
[~2023-04-03] MED LIST changes: +AMOX875T2 PO
[2023-04-03 16:28] LABS: BASO # 0.1 10^3/uL (0.0-0.2); BASO % 0.9 % (0.0-1.0); EOS # 0.3 10^3/uL (0.0-0.5); EOS % 3.7 % (0.0-3.0); HEMATOCRIT 40.5 % (36.0-47.0); HEMOGLOBIN 13.1 g/dl (12.0-15.5); LYMPH # 2.6 10^3/uL (1.5-5.0); LYMPH % 30.9 % (24.0-44.0); MEAN CORPUSCULAR HEMOGLOBIN 27.1 pg (27.0-33.0); MEAN CORPUSCULAR HGB CONC 32.3 g/dl (32.0-36.5); MEAN CORPUSCULAR VOLUME 83.7 fl (80.0-96.0); MONO # 0.6 10^3/uL (0.0-0.8); MONO % 7.2 % (2.0-8.0); NEUTROPHILS # 4.8 10^3/uL (1.5-8.5); NEUTROPHILS % 56.8 % (36.0-66.0); PLATELET COUNT, AUTOMATED 289 10^3/uL (150-450); RED BLOOD COUNT 4.84 10^6/uL (4.00-5.40); WHITE BLOOD COUNT 8.5 10^3/uL (4.0-10.0)
[2023-04-03 16:33] LABS: ALBUMIN 4.1 G/DL (3.2-5.2); ALKALINE PHOSPHATASE 83 U/L (46-116); ALT/SGPT 40 U/L (7.0-40); AST/SGOT 23 U/L (<34); BILIRUBIN,TOTAL 0.2 MG/DL (0.3-1.2); BLOOD UREA NITROGEN 15 MG/DL (9-23); CALCIUM LEVEL 9.6 MG/DL (8.5-10.1); CARBON DIOXIDE LEVEL 28 MMOL/L (20-31); CHLORIDE LEVEL 105 MMOL/L (98-107); CREATININE FOR GFR 0.74 MG/DL (0.55-1.30); GLOMERULAR FILTRATION RATE > 60.0 (>60); GLUCOSE, FASTING 81 MG/DL (60-100); POTASSIUM SERUM 4.2 MMOL/L (3.5-5.1); SODIUM LEVEL 139 MMOL/L (136-145); TOTAL 25(OH) VITAMIN D 21.7 NG/ML (20.0-100.0); TOTAL PROTEIN 7.5 G/DL (5.7-8.2)
[2023-04-03 16:57] LABS: HEPATITIS B SURFACE ANTIBODY NEGATIVE (POSITIVE)
[2023-04-03 17:25] LABS: HIV 1&2 SCREEN NEGATIVE (NEGATIVE)
[2023-04-03 17:34] LABS: HEPATITIS C VIRUS ABY INDEX 0.16 INDEX (<0.8)
== END ==
LOC: M PLALAB 12:44
PROVIDERS: ATTEND Physician Assistant Medical
DX: G44.209 Tension-type headache, unspecified, not intractable (principal); Z20.5 Contact with and (suspected) exposure to viral hepatitis; E55.9 Vitamin D deficiency, unspecified; F41.9 Anxiety disorder, unspecified; J30.2 Other seasonal allergic rhinitis; K21.9 Gastro-esophageal reflux disease without esophagitis

== ENCOUNTER → 2023-08-31 | Outpatient (CLI) | payer OTHER ==
[2023-08-31 13:35] LABS: HIV 1&2 SCREEN NEGATIVE (NEGATIVE)
[2023-08-31 13:43] LABS: HEPATITIS C VIRUS ABY INDEX < 0.02 INDEX (<0.8)
[2023-08-31 15:32] LABS: Trichomonas vaginalis (AMP) NOT DETECTED (NEGATIVE)
[2023-08-31 15:57] LABS: GC DNA AMPLIFICATION NEGATIVE (NEGATIVE)
== END ==
LOC: M PLALAB 09:44
PROVIDERS: ATTEND Nurse Practitioner Family
DX: Z11.3 Encounter for screening for infections with a predominantly sexual mode of transmission (principal)

== ENCOUNTER 2023-09-24 10:29 | Inpatient (IN) | payer MEDICAID, OTHER ==
[~2023-09-24] VITALS: Ht 175.3 cm; Wt 90.9 kg
[~2023-09-24 10:29] MED LIST changes: +RISP-106 PO; -RISP-9 PO
[2023-09-24] MEDS ORDERED: INVE234I IM (11:15)
[2023-09-24] MEDS ORDERED: CARV3.12 PO (11:15)
[2023-09-24] MEDS ORDERED: TRAZ-252 PO (11:15)
[2023-09-24 11:20] LABS: HEMATOCRIT 41.6 % (36.0-47.0); HEMOGLOBIN 13.9 g/dl (12.0-15.5); MEAN CORPUSCULAR HEMOGLOBIN 27.6 pg (27.0-33.0); MEAN CORPUSCULAR HGB CONC 33.4 g/dl (32.0-36.5); MEAN CORPUSCULAR VOLUME 82.5 fl (80.0-96.0); PLATELET COUNT, AUTOMATED 315 10^3/uL (150-450); RED BLOOD COUNT 5.04 10^6/uL (4.00-5.40); WHITE BLOOD COUNT 8.8 10^3/uL (4.0-10.0)
[2023-09-24 11:48] LABS: AMPHETAMINES LEVEL URINE NEGATIVE (NEGATIVE); BARBITURATES URINE NEGATIVE (NEGATIVE); COCAINE METABOLITE URINE NEGATIVE (NEGATIVE); METHADONE URINE NEGATIVE (NEGATIVE); OPIATES URINE NEGATIVE (NEGATIVE); PHENCYCLIDINE URINE NEGATIVE (NEGATIVE)
[2023-09-24 11:49] LABS: BENZODIAZEPINES URINE NEGATIVE (NEGATIVE); CANNABINOIDS URINE NEGATIVE (NEGATIVE)
[2023-09-24] MEDS: NICOTINE 14 MG/24 HR TRANSDERMAL TD SCH (11:49)
[2023-09-24] MEDS: CARVedilol 3.125 MG TAB PO SCH (11:49)
[2023-09-24 11:51] LABS: ETHYL ALCOHOL (ETHANOL) 0.005 % (0.000-0.010)
[2023-09-24 11:52] LABS: ALBUMIN 4.3 G/DL (3.2-5.2); ALKALINE PHOSPHATASE 104 U/L (46-116); ALT/SGPT 35 U/L (7.0-40); AST/SGOT 18 U/L (<34); BILIRUBIN,DIRECT < 0.1 MG/DL (<0.4); BILIRUBIN,TOTAL 0.3 MG/DL (0.3-1.2); BLOOD UREA NITROGEN 12 MG/DL (9-23); CALCIUM LEVEL 10.1 MG/DL (8.5-10.1); CARBON DIOXIDE LEVEL 29 MMOL/L (20-31); CHLORIDE LEVEL 102 MMOL/L (98-107); CREATININE FOR GFR 0.76 MG/DL (0.55-1.30); GLOMERULAR FILTRATION RATE > 60.0 (>60); GLUCOSE, FASTING 128 MG/DL (60-100); POTASSIUM SERUM 4.2 MMOL/L (3.5-5.1); SALICYLATE LEVEL < 3.0 MG/DL (<30); SODIUM LEVEL 138 MMOL/L (136-145); TOTAL PROTEIN 8.1 G/DL (5.7-8.2)
[2023-09-24 11:54] LABS: THYROID STIMULATING HORMONE 1.942 uIU/ML (0.55-4.78)
[2023-09-24 11:58] LABS: HCG, SERUM QUALITATIVE NEGATIVE (NEGATIVE)
[2023-09-24] MEDS ORDERED: NICO14DI6 TD (13:11)
[2023-09-24] MEDS ORDERED: HOME MED LIST COMPLETE! XX SCH (13:15)
[2023-09-24] MEDS: ALPRAZolam 0.5 MG TAB PO ONE (18:05)
[2023-09-24] MEDS ORDERED: IBUPROFEN 400MG TAB PO PRN (19:55)
[2023-09-24] MEDS ORDERED: ACETAMINOPHEN TAB 650MG DOSE (2X325MG) PO PRN (19:55)
[2023-09-24] MEDS ORDERED: MAALOX 30 ML SUSP *UDC PO PRN (19:55)
[2023-09-24] MEDS ORDERED: MOM 30ML SUSPENSION UDC PO PRN (19:55)
[2023-09-24 22:54] VITALS: BP 128/61
[2023-09-24] MEDS: traZODone 50 MG TAB PO PRN (22:57)
[2023-09-25 01:04] VITALS: BP 120/65; TEMP 97.5; O2SAT 96
[2023-09-25 06:48] VITALS: BP 158/87; TEMP 97.4; O2SAT 95
[2023-09-25] MEDS: diphenhydrAMINE 25MG CAP PO PRN (09:01)
[2023-09-25] MEDS: INFLUENZA QUADRIVALENT PF VACCINE 0.5ML SYRINGE IM.IMMUN ONE (09:02)
[2023-09-25] MEDS: SERTRALINE HCL 50 MG TAB PO SCH (10:35)
[2023-09-25 15:27] VITALS: BP 138/84; TEMP 97.1
[2023-09-25] MEDS: MONTELUKAST 10 MG TAB PO ONE (17:30)
[2023-09-25] MEDS: CETIRIZINE (ZyrTEC) 10 MG TAB PO ONE (17:30)
[2023-09-25] MEDS: FLUTICASONE PROP 0.05% NASAL SPRAY 16 GM (FLONASE) NARES SCH (17:34)
[2023-09-25] MEDS: AZELASTINE 137MCG NASAL SPY 30 ML (ASTELIN) SCH (18:18)
[2023-09-25] MEDS: OLANZapine 5 MG TAB PO SCH (20:05)
[2023-09-25] MEDS: traZODone 50 MG TAB PO PRN (20:05)
[2023-09-25] MEDS: OXYMETAZOLINE 0.05% NASAL SPRAY (AFRIN) SCH (20:06)
[2023-09-26 06:36] VITALS: BP 141/82; TEMP 97.4; O2SAT 97
[2023-09-26] MEDS: MONTELUKAST 10 MG TAB PO SCH (08:31)
[2023-09-26] MEDS: CETIRIZINE (ZyrTEC) 10 MG TAB PO SCH (08:31)
[2023-09-26] MEDS ORDERED: FLUTICASONE PROP 0.05% NASAL SPRAY 16 GM (FLONASE) NARES SCH (09:00)
[2023-09-26 18:13] VITALS: BP 134/84; TEMP 97.8
[2023-09-27 06:19] VITALS: BP 148/70; TEMP 97.7; O2SAT 97
[2023-09-27] MEDS ORDERED: OLAN1TAB16 PO (10:50)
[2023-09-27] MEDS ORDERED: CETI10TA PO (10:50)
[2023-09-27] MEDS ORDERED: SERT50TA29 PO (10:50)
[2023-09-27] MEDS ORDERED: MONT10TA97 PO (10:50)
[2023-09-27] MEDS ORDERED: OXYM05SP (10:50)
[2023-09-27] MEDS ORDERED: INVE234I IM (10:50)
[2023-09-27] MEDS ORDERED: TRAZ-252 PO ×2 (10:50)
== END 2023-09-27 12:32 | disposition home or self-care (01) | DRG 750 ==
LOC: M ED 10:29 → M ED INP 19:51 → M PSY 09-25 00:45
PROVIDERS: ADMIT Psychiatry & Neurology Psychiatry; ATTEND Student in an Organized Health Care Education/Training Program
DX: F20.9 Schizophrenia, unspecified (principal); F43.10 Post-traumatic stress disorder, unspecified; F60.89 Other specific personality disorders; R45.851 Suicidal ideations; F41.9 Anxiety disorder, unspecified; Z79.899 Other long term (current) drug therapy; Z11.52 Encounter for screening for COVID-19; Z91.411 Personal history of adult psychological abuse

== ENCOUNTER → 2023-12-03 | Outpatient (REF) | payer OTHER, MEDICAID ==
[~2023-12-03] MED LIST changes: +CARV3.12 PO; +CETI10TA PO; +INVE234I IM; +MONT10TA97 PO; +NICO14DI6 TD; +OLAN1TAB16 PO; +OXYM05SP; +SERT50TA29 PO; +TRAZ-252 PO
== END ==
LOC: M SFHCWAGY 10:26
PROVIDERS: ATTEND Nurse Practitioner Family
DX: Z12.4 Encounter for screening for malignant neoplasm of cervix (principal); R87.810 Cervical high risk human papillomavirus (HPV) DNA test positive

== ENCOUNTER → 2024-03-19 | Outpatient (REF) ==
[2024-03-21 14:41] LABS: QuantiFERON-TB Gold Plus NEGATIVE (NEGATIVE)
== END ==
LOC: M LAB 10:43
PROVIDERS: ATTEND Nurse Practitioner Adult Health
DX: Z02.89 Encounter for other administrative examinations (principal)

== ENCOUNTER → 2024-08-27 | Outpatient (CLI) | payer OTHER ==
[~2024-08-27] MED LIST changes: -ARIP10TA32 PO; +ARIP10TA63 PO
[2024-08-27 15:02] LABS: BASO # 0.1 10^3/uL (0.0-0.2); BASO % 0.8 % (0.0-1.0); EOS # 0.2 10^3/uL (0.0-0.5); EOS % 2.2 % (0.0-3.0); HEMATOCRIT 45.1 % (36.0-47.0); HEMOGLOBIN 14.6 g/dl (12.0-15.5); LYMPH # 2.7 10^3/uL (1.5-5.0); LYMPH % 27.5 % (24.0-44.0); MEAN CORPUSCULAR HEMOGLOBIN 28.2 pg (27.0-33.0); MEAN CORPUSCULAR HGB CONC 32.4 g/dl (32.0-36.5); MEAN CORPUSCULAR VOLUME 87.1 fl (80.0-96.0); MONO # 0.6 10^3/uL (0.0-0.8); MONO % 5.9 % (2.0-8.0); NEUTROPHILS # 6.1 10^3/uL (1.5-8.5); NEUTROPHILS % 63.2 % (36.0-66.0); PLATELET COUNT, AUTOMATED 300 10^3/uL (150-450); RED BLOOD COUNT 5.18 10^6/uL (4.00-5.40); WHITE BLOOD COUNT 9.7 10^3/uL (4.0-10.0)
[2024-08-27 15:46] LABS: ALBUMIN 3.9 G/DL (3.2-5.2); ALKALINE PHOSPHATASE 113 U/L (35-104); ALT/SGPT 45 U/L (7.0-40); AST/SGOT 26 U/L (<34); BILIRUBIN,TOTAL 0.2 MG/DL (0.3-1.2); BLOOD UREA NITROGEN 8 MG/DL (9-23); CALCIUM LEVEL 9.9 MG/DL (8.5-10.1); CARBON DIOXIDE LEVEL 30 MMOL/L (20-31); CHLORIDE LEVEL 104 MMOL/L (98-107); CHOLESTEROL LEVEL 204 MG/DL (<200); CHOLESTEROL RISK RATIO 4.71 (<5); CREATININE FOR GFR 0.68 MG/DL (0.55-1.30); GLOMERULAR FILTRATION RATE > 60.0 (>60); GLUCOSE, FASTING 151 MG/DL (60-100); HDL CHOLESTEROL 43.3 MG/DL (>40); LDL CHOLESTEROL 88.1 MG/DL (<100); NON-HDL-C 160.7 MG/DL; POTASSIUM SERUM 4.3 MMOL/L (3.5-5.1); SODIUM LEVEL 141 MMOL/L (136-145); TOTAL PROTEIN 7.9 G/DL (5.7-8.2); TRIGLYCERIDES LEVEL 363 MG/DL (<150)
[2024-08-27 15:47] LABS: FREE T4 1.13 NG/DL (0.89-1.76)
[2024-08-27 15:48] LABS: THYROID STIMULATING HORMONE 1.743 uIU/ML (0.55-4.78)
[2024-08-27 16:06] LABS: HEMOGLOBIN A1c 6.3 % (4.0-6.0)
== END ==
LOC: M PLALAB 09:54
PROVIDERS: ATTEND Physician Assistant Medical
DX: I10 Essential (primary) hypertension (principal); F43.12 Post-traumatic stress disorder, chronic; F41.9 Anxiety disorder, unspecified; Z68.36 Body mass index [BMI] 36.0-36.9, adult

== ENCOUNTER → 2024-09-04 | Outpatient (CLI) | payer OTHER ==
[2024-09-04 17:15] LABS: INR 0.92; PARTIAL THROMBOPLASTIN TIME 28.6 SECONDS (24.8-34.2); PROTHROMBIN TIME 12.6 SECONDS (12.5-14.5)
[2024-09-04 17:16] LABS: HEPATITIS B SURFACE ANTIBODY NEGATIVE (POSITIVE)
[2024-09-04 17:29] LABS: HEPATITIS B SURFACE ANTIGEN NEGATIVE (NEGATIVE)
[2024-09-04 17:48] LABS: HEPATITIS C VIRUS ABY INDEX 0.12 INDEX (<0.8)
== END ==
LOC: M PLALAB 15:07
PROVIDERS: ATTEND Physician Assistant Medical
DX: R79.89 Other specified abnormal findings of blood chemistry (principal)

== ENCOUNTER → 2025-04-02 | Outpatient (CLI) | payer OTHER ==
[~2025-04-02] MED LIST changes: +CARV3.12; -IBUP-1022 PO; +IBUP600T42 PO; +METF500T13; +PALI234S; +TOPI-256
[2025-04-02 20:19] LABS: HEPATITIS B SURFACE ANTIBODY NEGATIVE (POSITIVE); HEPATITIS C VIRUS ABY INDEX < 0.02 INDEX (<0.8); HIV 1&2 SCREEN NEGATIVE (NEGATIVE)
== END ==
LOC: M PLALAB 14:31
PROVIDERS: ATTEND Physician Assistant Medical
DX: Z72.51 High risk heterosexual behavior (principal)

== ENCOUNTER 2025-04-09 06:37 | Emergency (ER) | payer OTHER ==
[~2025-04-09] VITALS: Ht 175.3 cm; Wt 116.5 kg
[~2025-04-09 06:37] MED LIST changes: -CARV3.12; -METF500T13; -PALI234S; -TOPI-256
[2025-04-09 08:14] LABS: PLATELET COUNT, AUTOMATED 301 10^3/uL (150-450)
[2025-04-09 08:34] LABS: ESTIMATED AVERAGE GLUCOSE 174.0 MG/DL (60-110)
[2025-04-09 08:37] LABS: CALCIUM LEVEL 9.7 MG/DL (8.5-10.1); CARBON DIOXIDE LEVEL 29 MMOL/L (20-31); CHLORIDE LEVEL 104 MMOL/L (98-107); CREATININE FOR GFR 0.71 MG/DL (0.55-1.30); GLOMERULAR FILTRATION RATE > 90.0 (>60); POTASSIUM SERUM 4.3 MMOL/L (3.5-5.1); SODIUM LEVEL 139 MMOL/L (136-145)
[2025-04-09 08:40] LABS: FREE T4 1.15 NG/DL (0.89-1.76)
[2025-04-09] MEDS ORDERED: TOPI-256 (08:58)
[2025-04-09] MEDS ORDERED: METF500T13 (08:58)
[2025-04-09] MEDS ORDERED: CARV3.12 (08:58)
[2025-04-09] MEDS ORDERED: PALI234S (08:58)
[2025-04-09 09:23] VITALS: BP 147/74; TEMP 96.8; O2SAT 94
== END 2025-04-09 09:29 | disposition home or self-care (01) ==
LOC: M ED 06:37
DX: R07.9 Chest pain, unspecified (principal); E11.9 Type 2 diabetes mellitus without complications; F41.9 Anxiety disorder, unspecified; E66.9 Obesity, unspecified; F17.200 Nicotine dependence, unspecified, uncomplicated; Z79.4 Long term (current) use of insulin; Z79.899 Other long term (current) drug therapy

== ENCOUNTER 2025-06-22 14:40 | Emergency (ER) | payer MEDICAID, OTHER ==
[~2025-06-22] VITALS: Ht 175.3 cm; Wt 117.3 kg
[~2025-06-22 14:40] MED LIST changes: +CARV3.12; +METF500T13; +PALI234S; +TOPI-256
[2025-06-22 15:38] LABS: BASO # 0.1 10^3/uL (0.0-0.2); BASO % 0.6 % (0.0-1.0); EOS # 0.1 10^3/uL (0.0-0.5); EOS % 1.0 % (0.0-3.0); LYMPH # 2.6 10^3/uL (1.5-5.0); LYMPH % 22.7 % (24.0-44.0); MONO # 0.8 10^3/uL (0.0-0.8); MONO % 6.8 % (2.0-8.0); NEUTROPHILS # 7.9 10^3/uL (1.5-8.5); NEUTROPHILS % 68.4 % (36.0-66.0); PLATELET COUNT, AUTOMATED 341 10^3/uL (150-450)
[2025-06-22 16:09] LABS: ALT/SGPT 59 U/L (7.0-40); AST/SGOT 46 U/L (<34); CALCIUM LEVEL 10.3 MG/DL (8.5-10.1); CARBON DIOXIDE LEVEL 28 MMOL/L (20-31); CHLORIDE LEVEL 99 MMOL/L (98-107); CREATININE FOR GFR 0.65 MG/DL (0.55-1.30); GLOMERULAR FILTRATION RATE > 90.0 (>60); POTASSIUM SERUM 4.2 MMOL/L (3.5-5.1); SODIUM LEVEL 136 MMOL/L (136-145)
[2025-06-22 16:11] LABS: HCG, SERUM QUALITATIVE NEGATIVE (NEGATIVE)
[2025-06-22] MEDS ORDERED: ISOVUE-370 76% 100 ML VIAL As Ordered ONE (18:19)
[2025-06-22] MEDS ORDERED: ONDA-282 PO (20:51)
[2025-06-22 21:05] VITALS: BP 132/71; TEMP 98.5; O2SAT 100
[2025-06-22] MEDS: ONDANSETRON 4MG/2ML VIAL IV ONE (21:06)
== END 2025-06-22 21:10 | disposition home or self-care (01) ==
LOC: M ED 14:40
DX: K82.8 Other specified diseases of gallbladder (principal); K76.0 Fatty (change of) liver, not elsewhere classified; R16.2 Hepatomegaly with splenomegaly, not elsewhere classified; R74.8 Abnormal levels of other serum enzymes; R74.01 Elevation of levels of liver transaminase levels; K42.9 Umbilical hernia without obstruction or gangrene; J45.909 Unspecified asthma, uncomplicated; F17.200 Nicotine dependence, unspecified, uncomplicated; F10.10 Alcohol abuse, uncomplicated; F20.9 Schizophrenia, unspecified; Z79.4 Long term (current) use of insulin; Z79.899 Other long term (current) drug therapy
CPT/HCPCS: 74177; 76705; 80048; 80076; 83690; 84703; 85025; 96374; 99284; J2405; Q9967

== ENCOUNTER → 2025-07-06 | Outpatient (REF) ==
[~2025-07-06] MED LIST changes: +ONDA-282 PO
== END ==
LOC: M EMP 14:41
PROVIDERS: ATTEND Family Medicine
DX: Z01.89 Encounter for other specified special examinations (principal)